=== PATIENT | female | born 1985 | race Caucasian/White ===

== ENCOUNTER 2022-06-05 17:45 | Emergency (ER) | payer MEDICAID, SELFPAY ==
[2022-06-05 17:59] VITALS: BP 166/94; PULSE 78; RESP 16; TEMP 36.7; O2SAT 99; BMI 29.6
--- NOTE | 2022-06-05 18:02 | XRR_ITS ---
PROCEDURE INFORMATION: Exam: XR Left Wrist Exam date and time: 06/05/2022 6:29 PM Age: 37 years old Clinical indication: Injury or trauma; Fall; Blunt trauma (contusions or hematomas); Wrist; Left TECHNIQUE: Imaging protocol: Radiologic exam of the Left wrist. Views: 3 or more views. COMPARISON: CR ( EX, ) 06/05/2022 6:23 PM FINDINGS: Bones/joints: Osseous structures are intact. Negative for fracture. Joint spaces are preserved. Soft tissues: Normal. XR/XR wrist LT min 3V* [id number] IMPRESSION: No acute findings.
--- NOTE | 2022-06-05 18:08 | ED_ITS ---
HPI - Fall General: Chief Complaint: Fall Stated Complaint: left arm pain Time Seen by Provider: 06/05/22 18:07 History of Present Illness: 37-year-old female comes in today for injury to the left forearm and wrist area. Patient reports that she tripped over her dog and hit her arm against a rock on the ground. Patient has pain and discomfort to the distal ulnar aspect of the arm. No obvious deformity, some swelling and tenderness is noted to palpation. Patient appears nontoxic. Patient appears in mild to moderate pain. Review of Systems General: Reports: 10 or more systems reviewed and unremarkable except in HPI and below Const: Denies: fever(s) Musc: Reports: extremity pain and extremity swelling Physical Exam Const: COMMON NORMALS: alert HENMT: COMMON NORMALS: normocephalic HEAD & SCALP: normocephalic THROAT: posterior oropharynx normal Neck/C-Spine: COMMON NORMALS: full ROM Resp: COMMON NORMALS: normal respiratory effort Cardio: COMMON NORMALS: regular rate RATE: regular rate Extremity: LEFT UPPER EXTREMITY: Yes lower arm (Tenderness with ecchymosis and swelling distal ulnar) Left lower arm: Yes inspection, Yes palpation and Yes neurovascular exam Neuro: SENSORIUM/ORIENTATION: Yes alert Skin: COMMON NORMALS: no rashes or lesions noted GENERAL SKIN EXAM: no rashes or lesions noted Course Vital Signs: Vital signs: Vital Signs Temperature 98.1 F 06/05/22 17:59 Pulse Rate 78 06/05/22 17:59 Respiratory Rate 16 06/05/22 17:59 Blood Pressure 166/94 06/05/22 17:59 Pulse Oximetry 99 06/05/22 17:59 MDM - Fall Medical Decision Making 37-year-old female comes in today for injury to the left forearm. On exam patient has tenderness and swelling with some mild ecchymosis to the distal ulnar aspect of the left forearm. No obvious deformity. Pulses are intact. Differential diagnosis includes fracture, hematoma, dislocation. X-ray of the wrist and forearm noted no fracture. Reviewed exam with patient with recommendations for treatment and follow-up. Patient reported understanding agreed to plan. Discharge Plan Discharge Patient Disposition: Home Clinical Impression: Forearm injury Qualifiers: Encounter type: initial encounter Laterality: left Qualified Code(s): S59.912A - Unspecified injury of left forearm, initial encounter Condition: Stable Discharge Orders: Discharge ED (Routine); Ordered 06/05/22 Ordered By: Jorge Hay Discharge Diet: Usual diet Discharge Activity: Increase activity as tolerated Patient Instructions: Musculoskeletal Pain (ED) Activity Restrictions/Additional Instructions: Use elastic bandage for comfort. Use ice for further pain relief. Use Tylenol and ibuprofen as needed for further pain relief. Increase activity as tolerated. Follow-up with primary care as needed. Return to ER for new concerns. Coding Level of Care Code ED [employer] for [place] [facility] Exam Detailed
--- NOTE | 2022-06-05 18:13 | XRR_ITS ---
PROCEDURE INFORMATION: Exam: XR Left Forearm Exam date and time: 06/05/2022 6:23 PM Age: 37 years old Clinical indication: Injury or trauma; Fall; Blunt trauma (contusions or hematomas); Arm, lower; Left; Additional info: Fall injury TECHNIQUE: Imaging protocol: Radiologic exam of the Left forearm. Views: 2 views. COMPARISON: No relevant prior studies available. FINDINGS: Bones/joints: Old fracture deformity along the proximal/mid aspect of the ulna and distal humerus. Intact ORIF hardware noted within the elbow. No acute fracture. Soft tissues: Normal. XR/XR forearm LT 2V [id number] IMPRESSION: No acute findings.
[2022-06-05] MEDS: HYDROcodone-acetaminophen 7.5-325 mg Tablet 1 TAB PO (18:54)
== END 2022-06-05 19:01 | disposition home or self-care (01) ==
PROVIDERS: Emergency Provider Nurse Practitioner Family; PCP Family Medicine
DX: S59.912A Unspecified injury of left forearm, initial encounter (principal); W01.0XXA Fall on same level from slipping, tripping and stumbling without subsequent striking against object, initial encounter
CPT/HCPCS: 73090; 73110; 99283